=== PATIENT | female | born 1965 | race Caucasian/White ===

== ENCOUNTER 2019-12-11 12:51 | Observation (INO) ==
[2019-12-11 13:43] LABS: Basophils # 0.1 K/mcL (0.0-0.2); Basophils % 0.5 %; Eosinophils # 0.1 K/mcL (0.0-0.6); Eosinophils % 0.9 %; Hematocrit 42.4 % (35.3-44.9); Hemoglobin 13.7 g/dL (11.5-15.4); Immature Granulocytes % 0.7 % (0-4); Lymphocytes # 2.6 K/mcL (0.6-4.6); Lymphocytes % 26.1 %; Mean Corpuscular HGB Conc 32.3 g/dL (31.6-35.5); Mean Corpuscular Hemoglobin 29.4 pg (28.0-33.3); Mean Platelet Volume 8.9 fL (9.4-12.4); Monocytes # 0.5 K/mcL (0.0-1.3); Monocytes % 4.7 %; Neutrophils # 6.7 K/mcL (1.6-8.9); Platelet Count 253 K/mcL (140-400); Red Blood Count 4.66 M/mcL (3.82-4.97); Red Cell Distribution Width 12.4 % (11.5-14.5); Segmented Neutrophils % 67.1 %
[2019-12-11 13:44] LABS: INR 0.9; Prothrombin Time 9.8 Seconds (9.4-12.1)
[2019-12-11 13:47] LABS: Activated Partial Thrombo Time 40.5 Seconds (26.0-36.0)
[2019-12-11 14:01] LABS: Albumin 3.7 g/dL (3.5-5.7); Albumin/Globulin Ratio 1.4 (1.1-2.2); Bilirubin,Direct 0.1 mg/dL (0.0-0.2); Bilirubin,Indirect 0.4 mg/dL (0.0-1.0); Bilirubin,Total 0.5 mg/dL (0.3-1.0); Globulin 2.6 g/dL (2.4-3.5); Total Protein 6.3 g/dL (6.4-8.9)
[2019-12-11 14:03] LABS: BUN/Creatinine Ratio 15 (6-26); Blood Urea Nitrogen 13 mg/dL (6-20); Carbon Dioxide 29 mEq/L (23-29); Chloride 110 mEq/L (98-107); Glucose 115 mg/dL (70-105); Osmolality,Calculated 285 (280-300); Potassium 4.2 mEq/L (3.5-5.1); Sodium 137 mEq/L (136-145); Troponin I < 0.03 ng/mL (< 0.04); eGFR For African Americans > 60 (> 60); eGFR For Non-African Americans > 60 (> 60)
[2019-12-11] MEDS ORDERED: Furosemide 20 MG/2 ML VIAL IVP ONE (15:49)
[2019-12-11] MEDS ORDERED: Ondansetron 4 MG/2 ML VIAL IVP PRN (15:58)
[2019-12-11] MEDS ORDERED: Naloxone 0.4 MG/ML INJ IVP PRN (15:58)
[2019-12-11] MEDS ORDERED: Nitroglycerin 0.4 MG TAB.SUBL SL PRN (16:01)
[2019-12-11] MEDS ORDERED: Ipratropium/Albuterol Neb 3 ML IH PRN (16:03)
[2019-12-11] MEDS: carvediloL 6.25 MG TABLET PO SCH (17:44)
[2019-12-11] MEDS: *HR* Heparin 5,000 UNIT/ML VIAL SQ SCH (19:45)
[2019-12-12] MEDS ORDERED: tiZANidine 4 MG TABLET PO PRN (00:09)
[2019-12-12] MEDS ORDERED: hydrOXYzine pamoate 25 MG CAPSULE PO PRN (00:10)
[2019-12-12 01:31] LABS: Basophils # 0.1 K/mcL (0.0-0.2); Basophils % 0.7 %; Eosinophils # 0.1 K/mcL (0.0-0.6); Eosinophils % 0.9 %; Hematocrit 40.4 % (35.3-44.9); Hemoglobin 13.3 g/dL (11.5-15.4); Immature Granulocytes % 0.3 % (0-4); Lymphocytes % 43.9 %; Mean Corpuscular HGB Conc 32.9 g/dL (31.6-35.5); Mean Corpuscular Hemoglobin 29.8 pg (28.0-33.3); Mean Corpuscular Volume 90.4 fL (83.0-100.0); Mean Platelet Volume 8.9 fL (9.4-12.4); Monocytes # 0.5 K/mcL (0.0-1.3); Monocytes % 4.8 %; Neutrophils # 5.2 K/mcL (1.6-8.9); Platelet Count 243 K/mcL (140-400); Red Blood Count 4.47 M/mcL (3.82-4.97); Red Cell Distribution Width 12.2 % (11.5-14.5); Segmented Neutrophils % 49.4 %; White Blood Count 10.6 K/mcL (4.3-11.1)
[2019-12-12 01:34] LABS: Lymphocytes # 4.7 K/mcL (0.6-4.6)
[2019-12-12 01:57] LABS: BUN/Creatinine Ratio 15 (6-26); Blood Urea Nitrogen 13 mg/dL (6-20); Carbon Dioxide 28 mEq/L (23-29); Chloride 104 mEq/L (98-107); Chol/HDL Ratio 5.6 (0-4.9); Cholesterol 189 mg/dL (< 200); Glucose 124 mg/dL (70-105); HDL Cholesterol 34 mg/dL (40-59); LDL Cholesterol,Calculated 97 mg/dL (0-99); Magnesium 1.5 mg/dL (1.6-2.6); Osmolality,Calculated 292 (280-300); Phosphorous 4.2 mg/dL (2.7-4.5); Potassium 3.6 mEq/L (3.5-5.1); Sodium 140 mEq/L (136-145); Triglycerides 289 mg/dL (< 150); eGFR For African Americans > 60 (> 60); eGFR For Non-African Americans > 60 (> 60)
[2019-12-12 02:58] LABS: Platelet Estimate Normal (Normal); Reactive Lymphocytes Present (Not Present)
[2019-12-12] MEDS: *HR* Heparin 5,000 UNIT/ML VIAL SQ SCH ×2 (05:19→12:47)
[2019-12-12] MEDS ORDERED: Regadenoson 0.4 MG/5 ML SYRINGE IVP ONE (08:08)
[2019-12-12] MEDS ORDERED: Cyanocobalamin (B-12) 1,000 MCG TABLET PO SCH (09:00)
[2019-12-12] MEDS ORDERED: Cholecalciferol (D-3) 1,000 UNIT (25MCG) TABLET PO SCH (09:00)
[2019-12-12] MEDS ORDERED: Indomethacin 25 MG CAPSULE PO SCH (09:00)
[2019-12-12] MEDS ORDERED: Vilazodone Hcl [Viibryd] 40 MG PO SCH (09:00)
[2019-12-12] MEDS ORDERED: Tiotropium 18 MCG inhalation IH SCH (10:00)
[2019-12-12] MEDS ORDERED: Budesonide/Formoterol 160/4.5 1 PUFF INH IH SCH (10:00)
[2019-12-12] MEDS: carvediloL 6.25 MG TABLET PO SCH ×2 (12:44→15:41)
[2019-12-12 15:45] VITALS: BP 113/73
== END 2019-12-12 14:45 | disposition home or self-care (01) ==
LOC: 3BNU 12:51 → EMEROOARM 12:51 → SUATTDRO 15:58 → 3BNU 17:08
PROVIDERS: ADMIT Internal Medicine; ATTEND Internal Medicine

== ENCOUNTER 2020-05-08 11:02 | Observation (INO) ==
[2020-05-08] MEDS ORDERED: Aspirin 81 MG TAB.CHEW PO STA (11:12)
[2020-05-08 11:44] LABS: Basophils # 0.1 K/mcL (0.0-0.2); Basophils % 0.5 %; Eosinophils # 0.1 K/mcL (0.0-0.6); Eosinophils % 0.5 %; Hematocrit 46.6 % (35.3-44.9); Hemoglobin 15.2 g/dL (11.5-15.4); Immature Granulocytes % 0.5 % (0-4); Lymphocytes # 3.4 K/mcL (0.6-4.6); Lymphocytes % 22.7 %; Mean Corpuscular HGB Conc 32.6 g/dL (31.6-35.5); Mean Corpuscular Hemoglobin 29.6 pg (28.0-33.3); Mean Corpuscular Volume 90.8 fL (83.0-100.0); Mean Platelet Volume 9.4 fL (9.4-12.4); Monocytes # 0.5 K/mcL (0.0-1.3); Monocytes % 3.5 %; Neutrophils # 10.8 K/mcL (1.6-8.9); Platelet Count 327 K/mcL (140-400); Red Blood Count 5.13 M/mcL (3.82-4.97); Red Cell Distribution Width 13.2 % (11.5-14.5); Segmented Neutrophils % 72.3 %
[2020-05-08 12:02] LABS: BUN/Creatinine Ratio 13 (6-26); Blood Urea Nitrogen 13 mg/dL (6-20); Calcium 9.7 mg/dL (8.6-10.3); Carbon Dioxide 28 mEq/L (23-29); Chloride 100 mEq/L (98-107); Glucose 129 mg/dL (70-105); Osmolality,Calculated 284 (280-300); Potassium 3.9 mEq/L (3.5-5.1); Sodium 136 mEq/L (136-145); Troponin I < 0.03 ng/mL (< 0.04); eGFR For African Americans > 60 (> 60); eGFR For Non-African Americans 59 (> 60)
[2020-05-08] MEDS ORDERED: Naloxone 0.4 MG/ML INJ IVP PRN (14:16)
[2020-05-08] MEDS ORDERED: tiZANidine 4 MG TABLET PO PRN (14:17)
[2020-05-08] MEDS ORDERED: hydrOXYzine pamoate 25 MG CAPSULE PO PRN (14:17)
[2020-05-08] MEDS ORDERED: Isovue-370 500 ML BOTTLE IVP ONE (14:39)
[2020-05-08] MEDS: *HR* Heparin 5,000 UNIT/ML VIAL SQ SCH (16:05)
[2020-05-08] MEDS: carvediloL 6.25 MG TABLET PO SCH (16:55)
[2020-05-08 18:31] LABS: Estimated Average Glucose 128 mg/dl
[2020-05-08] MEDS: Indomethacin 25 MG CAPSULE PO SCH (20:45)
[2020-05-09 03:24] LABS: Immature Granulocytes % 0.3 % (0-4); Mean Platelet Volume 10.6 fL (9.4-12.4); Monocytes % 5.7 %; Platelet Count 274 K/mcL (140-400); Red Cell Distribution Width 13.3 % (11.5-14.5)
[2020-05-09 03:27] LABS: Basophils # 0.1 K/mcL (0.0-0.2); Basophils % 0.7 %; Eosinophils # 0.2 K/mcL (0.0-0.6); Eosinophils % 1.6 %; Hematocrit 44.7 % (35.3-44.9); Hemoglobin 14.5 g/dL (11.5-15.4); Lymphocytes # 4.3 K/mcL (0.6-4.6); Lymphocytes % 37.2 %; Mean Corpuscular HGB Conc 32.4 g/dL (31.6-35.5); Mean Corpuscular Hemoglobin 29.5 pg (28.0-33.3); Monocytes # 0.7 K/mcL (0.0-1.3); Neutrophils # 6.3 K/mcL (1.6-8.9); Red Blood Count 4.91 M/mcL (3.82-4.97); Segmented Neutrophils % 54.5 %; White Blood Count 11.5 K/mcL (4.3-11.1)
[2020-05-09 03:36] LABS: BUN/Creatinine Ratio 17 (6-26); Blood Urea Nitrogen 16 mg/dL (6-20); Calcium 9.6 mg/dL (8.6-10.3); Carbon Dioxide 26 mEq/L (23-29); Chloride 99 mEq/L (98-107); Glucose 102 mg/dL (70-105); Magnesium 1.9 mg/dL (1.6-2.6); Osmolality,Calculated 277 (280-300); Phosphorous 3.6 mg/dL (2.7-4.5); Potassium 3.8 mEq/L (3.5-5.1); Sodium 133 mEq/L (136-145); eGFR For African Americans > 60 (> 60); eGFR For Non-African Americans > 60 (> 60)
[2020-05-09 04:19] LABS: Platelet Estimate Normal (Normal)
[2020-05-09] MEDS: *HR* Heparin 5,000 UNIT/ML VIAL SQ SCH (06:18)
[2020-05-09 07:47] VITALS: BP 108/71
[2020-05-09] MEDS ORDERED: Cyanocobalamin (B-12) 1,000 MCG TABLET PO SCH (09:00)
[2020-05-09] MEDS ORDERED: amLODIPine 5 MG TABLET PO SCH (09:00)
[2020-05-09] MEDS ORDERED: lisinopriL 10 MG TABLET PO SCH (09:00)
[2020-05-09] MEDS ORDERED: estradioL 1 MG TABLET PO SCH (09:00)
[2020-05-09] MEDS ORDERED: hydroCHLOROthiazide 25 MG TABLET PO SCH (09:00)
[2020-05-09] MEDS ORDERED: PARoxetine 20 MG TABLET PO SCH (09:00)
[2020-05-09] MEDS ORDERED: Aspirin Enteric Coated 81 MG Tablet PO SCH (09:00)
[2020-05-09] MEDS ORDERED: Cholecalciferol (D-3) 1,000 UNIT (25MCG) TABLET PO SCH (09:00)
[2020-05-09] MEDS ORDERED: Famotidine 20 MG TABLET PO SCH (09:00)
[2020-05-09] MEDS: carvediloL 6.25 MG TABLET PO SCH (09:06)
[2020-05-09] MEDS: Indomethacin 25 MG CAPSULE PO SCH (09:06)
[2020-05-09] MEDS ORDERED: Tiotropium 18 MCG inhalation IH SCH (10:00)
[2020-05-09] MEDS ORDERED: Budesonide/Formoterol 80/4.5 1 PUFF INH IH SCH (10:00)
== END 2020-05-09 10:59 | disposition home or self-care (01) ==
LOC: 3BNU 11:02 → EMEROOARM 11:02 → SUATTDRO 13:45 → 3BNU 14:12
PROVIDERS: ADMIT Internal Medicine; ATTEND Internal Medicine